=== PATIENT | male | born 1980 | race Asian ===

== ENCOUNTER 2018-08-11 10:55 | Emergency (ER) | payer OTHER ==
[~2018-08-11] VITALS: Ht 190.5 cm; Wt 127.0 kg
[2018-08-11 11:25] VITALS: Ht 190.5 cm; Wt 127.0 kg
[2018-08-11 11:49] LABS: CALCIUM 8.8 mg/dL (8.5-10.1); CARBON DIOXIDE 29.6 mmol/L (21-32); CHLORIDE SERUM 106 mmol/L (98-107); GFR1 > 60 mL/min; GLUCOSE SERUM 116 mg/dL (74-106); POTASSIUM SERUM 4.4 mmol/L (3.5-5.1); SODIUM SERUM 140 mmol/L (136-145)
[2018-08-11 11:54] LABS: ALBUMIN 3.8 g/dL (3.4-5.0); ALKALINE PHOSPHATASE 94 U/L (46-116); ALT/SGPT 47 U/L (16-63); AST/SGOT 40 U/L (15-37); BILIRUBIN TOTAL 0.29 mg/dL (0.20-1.00); LIPASE 180 IU/L (73-393); TOTAL PROTEIN, SERUM 8.2 g/dL (6.4-8.2)
[2018-08-11 12:00] LABS: BASOPHIL % 0.2 % (0-2); PLATELET COUNT 217 x10^3mcL (130-400); RED CELL DISTRIBUTION WIDTH 12.5 % (11.5-14.5)
[2018-08-11 13:49] LABS: microscopic required? YES; urine erythrocyte TRACE (NEGATIVE)
[2018-08-11 16:05] VITALS: BP 136/82
== END 2018-08-11 16:09 | disposition short-term general hospital (02) ==
LOC: ED 10:55
PROVIDERS: Specialist
DX: S32.019A Unspecified fracture of first lumbar vertebra, initial encounter for closed fracture (principal); S22.089A Unspecified fracture of T11-T12 vertebra, initial encounter for closed fracture; S32.029A Unspecified fracture of second lumbar vertebra, initial encounter for closed fracture; S32.039A Unspecified fracture of third lumbar vertebra, initial encounter for closed fracture; F17.210 Nicotine dependence, cigarettes, uncomplicated; W17.89XA Other fall from one level to another, initial encounter; Y93.89 Activity, other specified; Y92.89 Other specified places as the place of occurrence of the external cause; Y99.8 Other external cause status
CPT/HCPCS: J7030; Q9967